=== PATIENT | male | born 2000 | race Caucasian/White ===

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

== ENCOUNTER 2021-06-04 13:41 | Emergency (ER) | payer OTHER, BC ==
[~2021-06-04] VITALS: Ht 175.3 cm; Wt 127.0 kg
[~2021-06-04 13:41] MED LIST: ACYC5CRE2 TP; ACYC800T88 PO; HYDR-3164 PO
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
[2021-06-04] MEDS ORDERED: LIDOCAINE/EPI/TETRACAINE TOPICAL GEL 3 ML. TP ONE (14:00)
[2021-06-04] MEDS ORDERED: IV NORMAL SALINE 1000ML BAG 1,000 ML IV ONE (14:00)
[2021-06-04] MEDS ORDERED: TETANUS AND DIPHTHERIA TOX/PF 0.5 ML DISP.SYRIN. VAX IM ONE (14:00)
[2021-06-04] MEDS ORDERED: CONTRAST GIVEN. MC PRN (14:15)
--- NOTE | 2021-06-04 14:15 | RAD ---
EXAM: Chest, single view. HISTORY: Blunt trauma. COMPARISON: None. FINDINGS: A frontal view of the chest is obtained. There is no infiltrate, pleural effusion or pneumo thorax. The heart is normal in size. IMPRESSION: No acute pulmonary finding. Electronically signed by: Evita Álvarez MD (06/04/2021 2:13 PM) [facility]
[2021-06-04 14:16] LABS: BASO # 0.1 x10^3/uL (0.0-0.2); BASO % 1 % (0-3); EOS # 0.1 x10^3/uL (0.0-0.7); EOS % 1 % (0-3); HEMATOCRIT 42.8 % (39.0-53.0); HEMOGLOBIN 14.6 g/dL (13.0-17.5); LYMPH # 1.8 x10^3/uL (1.0-4.8); LYMPH % 16 % (24-48); MEAN CORPUSCULAR HEMOGLOBIN 29 pg (25-35); MEAN CORPUSCULAR HGB CONC 34 g/dL (31-37); MEAN CORPUSCULAR VOLUME 86 fL (79-100); MONO # 0.7 x10^3/uL (0.0-1.1); MONO % 6 % (0-9); NEUT # 8.6 x10^3/uL (1.8-7.7); NEUT % 76 % (31-73); PLATELET COUNT 200 x10^3/uL (140-400); RED BLOOD COUNT 4.98 x10^6/uL (4.30-5.70); RED CELL DISTRIBUTION WIDTH 13.1 % (11.5-14.5); WHITE BLOOD COUNT 11.3 x10^3/uL (4.0-11.0)
[2021-06-04] MEDS ORDERED: IOHEXOL 300 MG/ML 100ML VIAL. IV ONE (14:30)
[2021-06-04 14:31] LABS: CALCIUM 8.3 mg/dL (8.5-10.1); CREATININE 0.8 mg/dL (0.7-1.3); POTASSIUM 3.9 mmol/L (3.5-5.1)
--- NOTE | 2021-06-04 15:18 | RAD ---
CT head without contrast PQRS statement: CT scans at this facility use dose reduction including either automated exposure cont rol, iterative reconstructions, and /or weight based radiation dosing via mA and kV modification when appropriate to reduce radiation dose to as low as reasonably achievable. HISTORY: Scalp injury, laceration. FINDINGS: No intracranial hemorrhage, mass, hydrocephalus, extra-axial fluid collections or infarctio n. There is motion artifact decreasing the sensitivity to detect pathology on several images. There i s a right supraorbital frontal scalp soft tissue laceration with edema and emphysema. Orbits, mastoid s and bones are unremarkable. IMPRESSION: No acute intracranial abnormality. Right supraorbital frontal scalp laceration. No skull fracture. Electronically signed by: José Miguel Gustafson MD (06/04/2021 3:15 PM) [id number]
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
[2021-06-04] MEDS ORDERED: LIDOCAINE 1%/EPI 1:100,000 20 ML VIAL. INJ ONE (15:45)
[2021-06-04] MEDS ORDERED: HYDR-2761 PO (16:06)
[2021-06-04] MEDS ORDERED: HYDROcodone/APAP 5/325MG 1 TAB TABLET PO ONE (16:15)
[2021-06-04] MEDS ORDERED: KETOROLAC 15 MG/ML VIAL. IVP ONE (16:15)
[2021-06-04 16:30] VITALS: BP 147/77
== END 2021-06-04 16:30 | disposition home or self-care (01) ==
LOC: ER 13:41
DX: S01.81XA Laceration without foreign body of other part of head, initial encounter (principal); S20.211A Contusion of right front wall of thorax, initial encounter; S00.83XA Contusion of other part of head, initial encounter; S20.311A Abrasion of right front wall of thorax, initial encounter; S00.01XA Abrasion of scalp, initial encounter; S00.81XA Abrasion of other part of head, initial encounter; W22.8XXA Striking against or struck by other objects, initial encounter; Y93.89 Activity, other specified; Y92.69 Other specified industrial and construction area as the place of occurrence of the external cause; Y99.0 Civilian activity done for income or pay
CPT/HCPCS: 12051; 36415; 70450; 71045; 71260; 74177; 80048; 85025; 90471; 90714; 96361; 96374; 99285; J1885; J3490; J7030; Q9967